=== PATIENT | male | born 1970 | race Caucasian/White ===

== ENCOUNTER 2018-09-11 19:16 | Inpatient (IN) | payer OTHER ==
[~2018-09-11] VITALS: Ht 182.9 cm; Wt 102.1 kg
[2018-09-11 20:08] VITALS: BP_SYST 155
[2018-09-11 20:26] LABS: BLOOD, URINE NEGATIVE (NEGATIVE); CLARITY/URINE CLEAR (CLEAR); COLOR,URINE AMBER (YELLOW); GLUCOSE,URINE 2+ (NEGATIVE); KETONES,URINE NEGATIVE (NEGATIVE); LEUKOCYTE ESTERASE ,URINE NEGATIVE (NEGATIVE); NITRITE, URINE NEGATIVE (NEGATIVE); PH,URINE 5.5 (5.0-8.0); PROTEIN URINE NEGATIVE (NEGATIVE); UROBILINOGEN,URINE 0.2 (0.2-1.0)
[2018-09-11 20:33] LABS: BILIRUBIN,URINE 2+ (NEGATIVE)
[2018-09-11] MEDS ORDERED: NACL 0.9% 1,000 ML IV ONE (22:20)
[2018-09-11] MEDS ORDERED: KETOROLAC TROMETHAMINE 30 MG VIAL IVP ONE (22:30)
[2018-09-11 22:53] LABS: BASOPHILS % (AUTO) 0.7 % (0.0-2.0); EOSINOPHILS # (AUTO) 0.1 K/uL (0.0-0.4); EOSINOPHILS % (AUTO) 3.1 % (0.0-4.0); HEMATOCRIT 45.3 % (36-54); HEMOGLOBIN 15.2 g/dL (14.0-18.0); LYMPHOCYTES # (AUTO) 1.1 K/uL (1.0-5.5); MEAN CORPUSCULAR HEMOGLOBIN 30 pg (27-31); MEAN CORPUSCULAR HGB CONC 34 % (32-36); MEAN CORPUSCULAR VOLUME 89 fL (79.0-98.0); MONOCYTES # (AUTO) 0.5 K/uL (0.0-1.0); MONOCYTES % (AUTO) 10.6 % (1.7-9.3); NEUTROPHILS # (AUTO) 2.9 K/uL (1.8-7.7); NEUTROPHILS % (AUTO) 62.6 % (40.0-70.0); PLATELET COUNT (AUTO) 191 K/uL (130-430); RED BLOOD CELL COUNT(AUTO) 5.09 MIL/uL (4.2-6.2); WHITE BLOOD COUNT (AUTO) 4.6 K/uL (4.8-10.8)
[2018-09-11 23:53] LABS: CALCIUM 8.8 mg/dL (8.4-11.0); CREATININE 0.71 mg/dL (0.55-1.30); POTASSIUM 3.9 mmol/L (3.5-5.1)
[2018-09-11 23:58] LABS: ALBUMIN 3.8 g/dL (3.4-4.8)
[2018-09-12 00:33] LABS: CKMB RELATIVE INDEX 0.6 (0.0-2.9); CREATINE KINASE MB 2.2 ng/mL (0-3.6)
[2018-09-12 01:26] LABS: CREATINE KINASE MB 2.1 ng/mL (0-3.6)
[2018-09-12] MEDS ORDERED: D5NS 500 ML IV SCH (02:00)
[2018-09-12] MEDS ORDERED: EMPA10TA PO (02:23)
[2018-09-12] MEDS ORDERED: SITA1TBM7 PO (02:23)
[2018-09-12] MEDS ORDERED: GABA-529 PO (02:23)
[2018-09-12 02:35] VITALS: BP_SYST 141
[2018-09-12] MEDS: MORPHINE 4 MG/ML INJ. SYRINGE IVP PRN ×4 (03:21→22:25)
[2018-09-12] MEDS ORDERED: ZOLPIDEM TARTRATE 5 MG TABLET PO PRN (05:15)
[2018-09-12] MEDS ORDERED: MORPHINE 4 MG/ML INJ. SYRINGE IVP PRN (05:15)
[2018-09-12] MEDS ORDERED: MAGNESIUM SULFATE 50 ML IV PRN (05:15)
[2018-09-12] MEDS ORDERED: DEXTROSE 50% JECT 50 ML DISP.SYRIN IVP PRN (05:15)
[2018-09-12] MEDS ORDERED: POTASSIUM CHLORIDE 20 MEQ TAB.PRT.SR PO PRN (05:15)
[2018-09-12] MEDS ORDERED: LORazepam 2 MG/ML VIAL IVP PRN (05:15)
[2018-09-12] MEDS ORDERED: MUPIROCIN 2% TOPICAL OINTMENT 22 GM NS PRN (05:15)
[2018-09-12] MEDS ORDERED: DOCUSATE SODIUM 100 MG CAPSULE PO PRN (05:15)
[2018-09-12 08:29] VITALS: BP_SYST 127
[2018-09-12 08:59] LABS: BARBITURATE, URINE NEGATIVE (NEG <=200); BENZODIAZEPINE, URINE NEGATIVE (NEG <=150); CANNABINOID, URINE NEGATIVE (NEG <=50); COCAINE, URINE NEGATIVE (NEG <=150); METHAMPHETAMINES SCREEN,URINE NEGATIVE (NEG <=500); OPIATE, URINE NEGATIVE (NEG <=100); PHENCYCLIDINE SCREEN,URINE NEGATIVE (NEG <=25); UR TRICYCLIC ANTIDEPRESSANTS NEGATIVE (NEG <=300); URINE AMPHETAMINE NEGATIVE (NEG <=500); URINE METHADONE NEGATIVE (NEG <=200); URINE OXYCODONE SCREEN NEGATIVE (NEG <=100); URINE PROPOXYPHENE SCREEN NEGATIVE (NEG <=300)
[2018-09-12] MEDS: GABAPENTIN 100 MG CAPSULE PO SCH ×2 (09:12→22:02)
[2018-09-12] MEDS: HEPARIN SODIUM,PORCINE 5000 UNITS/ML VIAL SUBCUT SCH ×2 (09:18→21:00)
[2018-09-12] MEDS: INSULIN LISPRO SLIDING SCALE 100 UNITS/ML VIAL (humaLOG) SUBCUT PRN ×3 (11:37→22:18)
[2018-09-12 12:00] VITALS: BP_SYST 128
[2018-09-12 16:12] VITALS: BP_SYST 124
[2018-09-12] MEDS ORDERED: LR 1,000 ML IV.SOLN IV ONE (17:15)
[2018-09-12] MEDS ORDERED: NEOSTIGMINE METHYLSULFATE 1 MG/ML, 10 ML VIAL IVP ONE (17:15)
[2018-09-12] MEDS ORDERED: MIDAZOLAM HCL 5 MG/5 ML VIAL IVP ONE (17:15)
[2018-09-12] MEDS ORDERED: GLYCOPYRROLATE 0.2 MG/ML VIAL IJ ONE (17:15)
[2018-09-12] MEDS ORDERED: ONDANSETRON HCL 4 MG/2 ML VIAL IVP ONE (17:15)
[2018-09-12] MEDS ORDERED: fentaNYL CITRATE 250 MCG/5 ML AMP IV ONE (17:15)
[2018-09-12] MEDS ORDERED: fentaNYL CITRATE/PF 100 MCG/2 ML AMP IVP ONE (17:15)
[2018-09-12] MEDS ORDERED: SEVOFLURANE 15 MIN GAS INH ONE (17:15)
[2018-09-12] MEDS ORDERED: PROPOFOL 200MG/ 20ML VIAL (DIPRIVAN) IV ONE (17:15)
[2018-09-12] MEDS ORDERED: ROCURONIUM BROMIDE 10 MG/ML (ZEMURON) IV ONE (17:15)
[2018-09-12] MEDS ORDERED: NS IRRIG SOLN 1000 ML IR ONE (17:15)
[2018-09-12] MEDS ORDERED: CEFAZOLIN 2 GM IVPB PREMIX 50 ML IV ONE (17:15)
[2018-09-12] MEDS: D5NS 1,000 ML IV SCH (17:30)
[2018-09-12 19:47] VITALS: BP_SYST 147
[2018-09-13] VITALS: BP_SYST 140
[2018-09-13] MEDS: D5NS 1,000 ML IV SCH (03:55)
[2018-09-13] MEDS: INSULIN LISPRO SLIDING SCALE 100 UNITS/ML VIAL (humaLOG) SUBCUT PRN ×4 (06:28→21:25)
[2018-09-13 08:08] VITALS: BP_SYST 143
[2018-09-13] MEDS: GABAPENTIN 100 MG CAPSULE PO SCH ×2 (08:34→21:27)
[2018-09-13] MEDS: LR 1,000 ML IV SCH ×3 (08:34→21:34)
[2018-09-13] MEDS: HEPARIN SODIUM,PORCINE 5000 UNITS/ML VIAL SUBCUT SCH ×2 (08:41→21:00)
[2018-09-13 10:08] LABS: PROTHROMBIN TIME 10.1 SECS (9.5-12.5)
[2018-09-13 10:16] LABS: ALBUMIN 3.1 g/dL (3.4-4.8); CALCIUM 8.8 mg/dL (8.4-11.0); CREATININE 0.62 mg/dL (0.55-1.30); POTASSIUM 4.5 mmol/L (3.5-5.1); TOTAL BILIRUBIN 1.2 mg/dL (0.0-1.0)
[2018-09-13 10:39] LABS: BASOPHILS % (AUTO) 0.5 % (0.0-2.0); EOSINOPHILS # (AUTO) 0.2 K/uL (0.0-0.4); HEMATOCRIT 42.5 % (36-54); HEMOGLOBIN 14.1 g/dL (14.0-18.0); LYMPHOCYTES # (AUTO) 1.3 K/uL (1.0-5.5); LYMPHOCYTES % (AUTO) 19.7 % (20.5-51.5); MEAN CORPUSCULAR HEMOGLOBIN 30 pg (27-31); MEAN CORPUSCULAR HGB CONC 33 % (32-36); MEAN CORPUSCULAR VOLUME 90 fL (79.0-98.0); MONOCYTES # (AUTO) 0.6 K/uL (0.0-1.0); NEUTROPHILS # (AUTO) 4.4 K/uL (1.8-7.7); NEUTROPHILS % (AUTO) 67.8 % (40.0-70.0); RED BLOOD CELL COUNT(AUTO) 4.75 MIL/uL (4.2-6.2); RED CELL DISTRIBUTION WIDTH 14.8 % (9.0-15.0); WHITE BLOOD COUNT (AUTO) 6.4 K/uL (4.8-10.8)
[2018-09-13 11:30] VITALS: BP_SYST 147
[2018-09-13 13:03] LABS: PLATELET COUNT (AUTO) 189 K/uL (130-430)
[2018-09-13] MEDS: MORPHINE 4 MG/ML INJ. SYRINGE IVP PRN ×2 (14:24→21:34)
[2018-09-13 14:57] VITALS: BP_SYST 139
[2018-09-13] MEDS: ACETAMINOPHEN 325 MG TABLET PO PRN ×2 (17:30→23:25)
[2018-09-13 19:47] VITALS: BP_SYST 145
[2018-09-14] VITALS: BP_SYST 137
[2018-09-14] MEDS: LR 1,000 ML IV SCH ×3 (04:28→08:35)
[2018-09-14] MEDS: INSULIN LISPRO SLIDING SCALE 100 UNITS/ML VIAL (humaLOG) SUBCUT PRN ×2 (06:04→22:40)
[2018-09-14 07:13] LABS: ALBUMIN 2.8 g/dL (3.4-4.8); CALCIUM 8.3 mg/dL (8.4-11.0); CREATININE 0.58 mg/dL (0.55-1.30); POTASSIUM 3.7 mmol/L (3.5-5.1)
[2018-09-14 07:17] LABS: WHITE BLOOD COUNT (AUTO) 4.4 K/uL (4.8-10.8)
[2018-09-14 07:18] LABS: BASOPHILS % (AUTO) 0.4 % (0.0-2.0); HEMATOCRIT 39.1 % (36-54); HEMOGLOBIN 13.2 g/dL (14.0-18.0); LYMPHOCYTES % (AUTO) 18.2 % (20.5-51.5); MEAN CORPUSCULAR HEMOGLOBIN 30 pg (27-31); MEAN CORPUSCULAR HGB CONC 34 % (32-36); MEAN CORPUSCULAR VOLUME 89 fL (79.0-98.0); MONOCYTES % (AUTO) 10.6 % (1.7-9.3); NEUTROPHILS % (AUTO) 67.8 % (40.0-70.0); PLATELET COUNT (AUTO) 161 K/uL (130-430); RED BLOOD CELL COUNT(AUTO) 4.41 MIL/uL (4.2-6.2); RED CELL DISTRIBUTION WIDTH 14.6 % (9.0-15.0)
[2018-09-14 07:19] LABS: EOSINOPHILS # (AUTO) 0.1 K/uL (0.0-0.4); LYMPHOCYTES # (AUTO) 0.8 K/uL (1.0-5.5); MONOCYTES # (AUTO) 0.5 K/uL (0.0-1.0)
[2018-09-14 08:30] VITALS: BP_SYST 164
[2018-09-14] MEDS: ONDANSETRON HCL 4 MG/2 ML VIAL IVP PRN (08:33)
[2018-09-14] MEDS: HEPARIN SODIUM,PORCINE 5000 UNITS/ML VIAL SUBCUT SCH ×2 (09:00→21:24)
[2018-09-14] MEDS: GABAPENTIN 100 MG CAPSULE PO SCH ×2 (09:00→21:22)
[2018-09-14] MEDS ORDERED: D5NS 1,000 ML IV SCH (10:15)
[2018-09-14 12:20] VITALS: BP_SYST 150
[2018-09-14 15:10] LABS: HEPATITIS A AB, IgM Negative (Negative); HEPATITIS B CORE AB, IgM Negative (Negative); HEPATITIS B SURFACE AG Negative (Negative)
[2018-09-14 16:40] VITALS: BP_SYST 151
[2018-09-14] MEDS ORDERED: IOHEXOL 50 ML IV ONE (18:42)
[2018-09-14] MEDS ORDERED: LR 1,000 ML IV SCH (19:03)
[2018-09-14] MEDS ORDERED: METOCLOPRAMIDE HCL 10 MG/2 ML VIAL IVP PRN (19:15)
[2018-09-14] MEDS ORDERED: MORPHINE 4 MG/ML INJ. SYRINGE IVP PRN ×3 (19:15)
[2018-09-14] MEDS ORDERED: ONDANSETRON HCL 4 MG/2 ML VIAL IVP PRN (20:00)
[2018-09-14] MEDS ORDERED: CEFAZOLIN 1 GM IVPB PREMIX 50 ML IV SCH (20:00)
[2018-09-14] MEDS ORDERED: ACETAMINOPHEN 325 MG TABLET PO PRN (20:00)
[2018-09-14] MEDS ORDERED: MORPHINE 4 MG/ML INJ. SYRINGE ONE (20:20)
[2018-09-14] MEDS: NACL 0.9% 1,000 ML IV SCH (21:22)
[2018-09-14] MEDS ORDERED: metroNIDAZOLE 500 mg/NS 200 ML IV ONE (22:18)
[2018-09-14] MEDS ORDERED: CEFAZOLIN 2 GM IVPB PREMIX 100 ML IV ONE (22:18)
[2018-09-14] MEDS ORDERED: KCL 20 mEq in 100 mL (PREMIX) 0 ML IV ONE (22:26)
[2018-09-14] MEDS: CEFAZOLIN 2 GM IVPB PREMIX 50 ML IV SCH (22:34)
[2018-09-14] MEDS: MORPHINE 4 MG/ML INJ. SYRINGE IVP PRN (22:47)
[2018-09-14] MEDS: metroNIDAZOLE 500 mg/NS 100 ML IV SCH (23:24)
[2018-09-15] MEDS: HYDROmorphone 2 MG/ML VIAL IVP PRN ×5 (01:18→20:10)
[2018-09-15] MEDS: ONDANSETRON HCL 4 MG/2 ML VIAL IVP PRN ×3 (01:20→20:20)
[2018-09-15] MEDS: CEFAZOLIN 2 GM IVPB PREMIX 50 ML IV SCH (05:16)
[2018-09-15] MEDS: metroNIDAZOLE 500 mg/NS 100 ML IV SCH (06:38)
[2018-09-15] MEDS: INSULIN LISPRO SLIDING SCALE 100 UNITS/ML VIAL (humaLOG) SUBCUT PRN ×4 (06:41→20:44)
[2018-09-15 07:01] LABS: CALCIUM 7.9 mg/dL (8.4-11.0); CREATININE 0.76 mg/dL (0.55-1.30); POTASSIUM 3.9 mmol/L (3.5-5.1)
[2018-09-15 07:10] LABS: ALBUMIN 2.7 g/dL (3.4-4.8); RED BLOOD CELL COUNT(AUTO) 4.34 MIL/uL (4.2-6.2); TOTAL BILIRUBIN 0.7 mg/dL (0.0-1.0); WHITE BLOOD COUNT (AUTO) 5.4 K/uL (4.8-10.8)
[2018-09-15 07:11] LABS: BASOPHILS % (AUTO) 0.4 % (0.0-2.0); EOSINOPHILS % (AUTO) 0.1 % (0.0-4.0); HEMATOCRIT 38.7 % (36-54); LYMPHOCYTES # (AUTO) 0.7 K/uL (1.0-5.5); LYMPHOCYTES % (AUTO) 12.9 % (20.5-51.5); MEAN CORPUSCULAR HEMOGLOBIN 30 pg (27-31); MEAN CORPUSCULAR HGB CONC 34 % (32-36); MEAN CORPUSCULAR VOLUME 89 fL (79.0-98.0); MONOCYTES # (AUTO) 0.6 K/uL (0.0-1.0); MONOCYTES % (AUTO) 11.8 % (1.7-9.3); NEUTROPHILS # (AUTO) 4.1 K/uL (1.8-7.7); NEUTROPHILS % (AUTO) 75.3 % (40.0-70.0); PLATELET COUNT (AUTO) 180 K/uL (130-430); RED CELL DISTRIBUTION WIDTH 14.8 % (9.0-15.0)
[2018-09-15 07:50] VITALS: BP_SYST 146
[2018-09-15] MEDS: GABAPENTIN 100 MG CAPSULE PO SCH ×2 (09:22→20:08)
[2018-09-15] MEDS: HEPARIN SODIUM,PORCINE 5000 UNITS/ML VIAL SUBCUT SCH ×2 (09:24→20:09)
[2018-09-15] MEDS: NACL 0.9% 1,000 ML IV SCH ×2 (09:33→20:08)
[2018-09-15 12:00] VITALS: BP_SYST 144
[2018-09-15] MEDS: HYDROcodone/ACETAMIN 5-325 MG TAB (NORCO/ VICODIN) PO PRN (12:17)
[2018-09-15 16:00] VITALS: BP_SYST 140
[2018-09-15 20:00] VITALS: BP_SYST 158
[2018-09-16 00:24] VITALS: BP_SYST 155
[2018-09-16] MEDS: HYDROmorphone 2 MG/ML VIAL IVP PRN ×2 (00:53→05:56)
[2018-09-16] MEDS: NACL 0.9% 1,000 ML IV SCH ×2 (03:29→12:00)
[2018-09-16] MEDS: INSULIN LISPRO SLIDING SCALE 100 UNITS/ML VIAL (humaLOG) SUBCUT PRN (05:55)
[2018-09-16 07:32] LABS: HEMATOCRIT 37.4 % (36-54); HEMOGLOBIN 12.5 g/dL (14.0-18.0); MEAN CORPUSCULAR HEMOGLOBIN 30 pg (27-31); MEAN CORPUSCULAR HGB CONC 34 % (32-36); MEAN CORPUSCULAR VOLUME 90 fL (79.0-98.0); PLATELET COUNT (AUTO) 158 K/uL (130-430); RED BLOOD CELL COUNT(AUTO) 4.17 MIL/uL (4.2-6.2); RED CELL DISTRIBUTION WIDTH 15.1 % (9.0-15.0); WHITE BLOOD COUNT (AUTO) 4.8 K/uL (4.8-10.8)
[2018-09-16 07:34] LABS: CALCIUM 7.7 mg/dL (8.4-11.0); CREATININE 0.72 mg/dL (0.55-1.30)
[2018-09-16 07:43] LABS: BASOPHILS % (AUTO) 0.3 % (0.0-2.0); EOSINOPHILS % (AUTO) 0.8 % (0.0-4.0); LYMPHOCYTES # (AUTO) 1.2 K/uL (1.0-5.5); LYMPHOCYTES % (AUTO) 25.5 % (20.5-51.5); MONOCYTES # (AUTO) 0.7 K/uL (0.0-1.0); MONOCYTES % (AUTO) 13.9 % (1.7-9.3); NEUTROPHILS # (AUTO) 2.8 K/uL (1.8-7.7); NEUTROPHILS % (AUTO) 59.5 % (40.0-70.0)
[2018-09-16 07:56] VITALS: BP_SYST 156
[2018-09-16] MEDS: GABAPENTIN 100 MG CAPSULE PO SCH (08:09)
[2018-09-16] MEDS: HEPARIN SODIUM,PORCINE 5000 UNITS/ML VIAL SUBCUT SCH (08:10)
[2018-09-16] MEDS: HYDROcodone/ACETAMIN 5-325 MG TAB (NORCO/ VICODIN) PO PRN ×2 (09:32→14:32)
[2018-09-16 12:53] VITALS: BP_SYST 132
[2018-09-16 15:41] VITALS: BP_SYST 157
[2018-09-16] MEDS ORDERED: HYDR-4274 PO (15:47)
[2018-09-16 16:33] VITALS: BP_SYST 139
== END 2018-09-16 16:53 | disposition home or self-care (01) | DRG 418 ==
LOC: SED 19:16 → SMU 09-12 01:58
PROVIDERS: ADMIT General Practice; ATTEND General Practice
PROC: 0FN40ZZ Release Gallbladder, Open Approach (ICD-10-PCS; 2018-09-14)
PROC: BF131ZZ Fluoroscopy of Gallbladder and Bile Ducts using Low Osmolar Contrast (ICD-10-PCS; 2018-09-14)
PROC: 0FT44ZZ Resection of Gallbladder, Percutaneous Endoscopic Approach (ICD-10-PCS; principal; 2018-09-14 17:00)
DX: K85.10 Biliary acute pancreatitis without necrosis or infection (principal); M86.8X6 Other osteomyelitis, lower leg; E11.42 Type 2 diabetes mellitus with diabetic polyneuropathy; E78.5 Hyperlipidemia, unspecified; E66.9 Obesity, unspecified; K75.9 Inflammatory liver disease, unspecified; K66.0 Peritoneal adhesions (postprocedural) (postinfection); K82.8 Other specified diseases of gallbladder; K80.20 Calculus of gallbladder without cholecystitis without obstruction; E11.69 Type 2 diabetes mellitus with other specified complication; Z89.421 Acquired absence of other right toe(s); Z89.411 Acquired absence of right great toe; Z89.412 Acquired absence of left great toe; Z68.30 Body mass index [BMI] 30.0-30.9, adult
CPT/HCPCS: 36415; 71045; 74018; 76700-TC; 80048; 80053; 80061; 80074; 80307; 81003; 82150-TC; 82550-TC; 82553-TC; 82962; 83036; 83605; 83690-TC; 83735-TC; 84484; 85025; 85610-TC; 87040-TC; 87081; 88304; 93005; 96361; 96374; 99285; J0690; J1170; J1644; J1885; J2250; J2270; J2405; J2704; J2710; J3010; J3480; J3490; J7030; J7042; J7120; Q9967